=== PATIENT | female | born 1995 | race Caucasian/White ===

== ENCOUNTER 2017-05-13 06:00 | Observation (INO) ==
--- NOTE | 2017-05-13 09:10 | OB/GYN Progress Note ---
Date of Encounter: 05/13/17 Time of Encounter: 09:08 - Assessment and Plan (1) 39 weeks gestation of Current Visit: Yes Status: Acute Due to flulike symptoms and fever, will discharge home and postpone induction of labor until Monday at 8 AM. Plan of care discussed with Dr. Calzada (2) Upper respiratory infection Current Visit: No Status: Acute Qualifiers: URI type: unspecified URI Qualified Code(s): J06.9 - Acute upper respiratory infection, unspecified Subjective - Subjective Interval history: 1 P0 39+3 weeks gestation presents to triage for induction of labor. However, patient was seen in ED last night with flulike symptoms. Febrile with temperature greater than 101. Swab flu negative. Reports good movement, denies vaginal bleeding, denies leaking of fluid. Antepartum ROS: movement normal, no loss of fluid, no vaginal bleeding, no contractions Objective - Vital Signs Vital Signs: Intake and Output 05/12/17 05/13/17 05/13/17 23:59 07:59 15:59 Other: Weight 73.21 kg Patient Weight 05/13/17 23:59 Weight 73.21 kg - Exam FHR: auscultation normal FHR comments: 135 baseline Auscultation: bilateral: normal Abdomen: Present: normal appearance, soft, gravid
== END 2017-05-13 09:15 | disposition home or self-care (01) ==
LOC: INTOOBSV 08:15 → 1NENULAB 08:15
PROVIDERS: ADMIT Advanced Practice Midwife; ATTEND Advanced Practice Midwife

== ENCOUNTER 2017-05-15 08:00 | Inpatient (IN) ==
[2017-05-15] MEDS ORDERED: Ondansetron 4 MG/2 ML VIAL IVP PRN (08:33)
[2017-05-15] MEDS ORDERED: Famotidine 20 MG/2 ML VIAL IVP PRN (08:33)
[2017-05-15] MEDS ORDERED: *HR* Nalbuphine 20 MG/ML AMPUL IVP PRN (08:33)
[2017-05-15] MEDS ORDERED: Metoclopramide 10 MG/2 ML VIAL IVP PRN (08:33)
[2017-05-15] MEDS ORDERED: Naloxone 0.4 MG/ML INJ IVP PRN (08:33)
[2017-05-15 08:52] LABS: Basophils % 0.5 %; Eosinophils # 0.1 K/mcL (0.0-0.6); Eosinophils % 0.9 %; Hemoglobin 10.9 g/dL (11.5-15.4); Immature Granulocytes % 0.3 % (0-4); Immature Platelets 12.1 % (1.1-6.1); Lymphocytes # 1.7 K/mcL (0.6-4.6); Lymphocytes % 29.4 %; Mean Corpuscular HGB Conc 31.1 g/dL (31.6-35.5); Mean Corpuscular Hemoglobin 26.7 pg (28.0-33.3); Mean Corpuscular Volume 85.6 fL (83.0-100.0); Mean Platelet Volume 12.5 fL (9.4-12.4); Monocytes # 0.7 K/mcL (0.0-1.3); Monocytes % 12.5 %; Neutrophils # 3.3 K/mcL (1.6-8.9); Platelet Count 232 K/mcL (140-400); Red Blood Count 4.09 M/mcL (3.82-4.97); Red Cell Distribution Width 14.6 % (11.5-14.5); Segmented Neutrophils % 56.4 %
[2017-05-15] MEDS ORDERED: miSOPROStol 25 MCG TABLET PO PRN (08:52)
--- NOTE | 2017-05-15 09:15 | OB/GYN History & Physical ---
Date of Encounter: 05/15/17 Time of Encounter: 09:00 Assessment and Plan (1) 39 weeks gestation of Current visit: Yes Status: Acute Admit for IOL Cytotec for induction of labor Epidural when requested Anticipate (2) Non-stress test reactive on surveillance Current visit: Yes Status: Acute NST reactive Baseline 125 bpm/ moderate/ +accels/ -decels History of Present Illness Chief complaint: 39.5 weeks intrauterine here for IOL for IUGR HPI: Ms. Espino is a 21 year old female at 39 weeks + 5 days who presents to L&D for IOL. The patient reports active movements, denies vaginal bleeding, + contractions, - leakage of fluid complications - IUGR with normal dopplers Blood type: O- GBS: negative Rubella: Immune Hep B: Nonreactive Varicella IgG: Positive HIV Ab: Nonreactive Past Med Surg Social Fam HX - Past Medical History Medical history: non-contributory Psychiatric history: no psych history - Past Surgical History Surgical History: no surgical history - Social History Smoking Status: Never smoker Smokeless Tobacco Status: No Alcohol use: none Drug use: none - Family History Mother Adopted: [place]: Pat Méndez Age: 42 Family Member Ethnicity: Non- Living Status: Still Living Hx Family Cardiac Disorders: No Hx Family Respiratory Disorders: No Hx Family Cancer: No Hx Family GI Disorders: No Hx Family Genitourinary Disorders: No Hx Family Endocrine Disorder: No Hx Family Musculoskeletal Disorders: No Hx Family Autoimmune Disorders: No Hx Family Reproductive Disorders: No Hx Family Psychosocial Disorders: No Obstetrical History - Pregnancies : 1 Para: 0 Term: 0 : 0 Ab's: 0 Livin Medications and Allergies Gummies 05/15/17 [History] 3 Allergy/AdvReac Type Severity Reaction Status Date / Time Sulfa (Sulfonamide AdvReac Vomiting Verified 11/17/16 19:58 Antibiotics) Review of System OB - Constitutional Constitutional ROS IM: as per HPI - Cardiovascular Cardiovascular: no leg edema, no palpitations - Respiratory Respiratory: no cough, no dyspnea - Gastrointestinal Gastrointestinal: no vomiting Exam - Constitutional Constitutional: well developed, well nourished, no acute distress, average body habitus - HEENT HEENT: Normocephaly, Mucus Membranes Moist - Neck Neck exam: full ROM, trachea midline - Lungs Respiratory exam: CTAB - Cardiovascular Cardiovascular exam: RRR, +S1, +S2 - Abdomen Abdomen: Present: bowel sounds normal. Absent: bruit present - Extremities Extremities exam: radial pulses palpable and symmetrical Deep Tendon Reflex Grade: 2+ Normal - Vagina Vagina: Present: normal moisture - Uterus Uterus exam: Present: normal size (Fundus non-tender and soft) Results Result Diagrams: 05/15/17 08:36 Abnormal lab results Hgb 10.9 g/dL (11.5-15.4) L 05/15/17 08:36 Hct 35.0 % (35.3-44.9) L 05/15/17 08:36 MCH 26.7 pg (28.0-33.3) L 05/15/17 08:36 MCHC 31.1 g/dL (31.6-35.5) L 05/15/17 08:36 RDW 14.6 % (11.5-14.5) H 05/15/17 08:36 MPV 12.5 fL (9.4-12.4) H 05/15/17 08:36 Immature Plt Fraction 12.1 % (1.1-6.1) H 05/15/17 08:36 All other labs normal. - VTE Reasons for not Prescribing Prophylaxis: Treatment not Indicated - Low risk for VTE - Attending Attestation I examined this patient and my medical decision-making was reviewed with the Resident Physician. I agree with the documented findings, disposition and treatment plan as described. Darien Swann CNM
[2017-05-15 09:32] LABS: Amphetamine Screen,Urine Negative ng/mL (Cutoff=1000); Barbiturate Screen,Urine Negative ng/mL (Cutoff=200); Benzodiazepines Screen,Urine Negative ng/mL (Cutoff=200); Cannabinoid Screen,Urine Negative ng/mL (Cutoff = 50); Cocaine Screen,Urine Negative ng/mL (Cutoff= 300); Opiate Screen,Urine Negative ng/mL (Cutoff=300); Phencyclidine Screen,Urine Negative ng/mL (Cutoff=25)
--- NOTE | 2017-05-15 13:43 | OB Labor Progress Note ---
Date of Encounter: 05/15/17 Time of Encounter: 13:41 Labor Progress Note - Subjective Subjective: Patient resting comfortably in bed. - Vital Signs Vital Signs: VSS - Cervix Cervix: 1/50/-1 Anterior - Heart Tones Heart Tones: 130-140 category I - [place]: irregular contractions - Interventions Interventions: Intracervical booker placed without difficulty. Inflated with 30 cc sterile water. Patient and fetus tolerated well. Patient calls out after, I had left the room and states that she thinks her water had broken. Upon inspection, light stained meconium fluid present. - Plan Plan: Continue routine labor management GBS negative Patient may have nubain/epidural upon request Consider oral cytotec vs pitocin Anticipate vaginal delivery POC per consult with Dr Dawson.
--- NOTE | 2017-05-15 14:58 | Anesthesia Evaluation PreOp ---
Date of Encounter: 05/15/17 Time of Encounter: 14:56 - Past History Planned Operation: jeaneth Cardiac History: Denies any Significant Hx Pulmonary History: Denies Any Significant HX LOCKSTITCH SLEEVE SETTER History: Denies Any Significant HX Other Medical History: Denies Any Significant HX Anesthesia History: No Prior Anesthetic Complications, Past Anesthesia (tonsils) : Yes (39weeks, ) Alcohol Use: none Drug use: none Medications and Allergies Gummies 05/15/17 [History] 3 Allergy/AdvReac Type Severity Reaction Status Date / Time Sulfa (Sulfonamide AdvReac Vomiting Verified 11/17/16 19:58 Antibiotics) - Meds/Allergy Pre-op Review Medications Reviewed: Yes Allergies Reviewed: Yes Beta Blockers on Current Med List: No Anesthesia Results - Labs 05/15/17 08:36 Anesthesia Exam O2 Sat Height 1.6 m Weight 72.9 kg bpo 11/74 hr 87 Height: 63 Weight: 72 - HEENT Pupil (Motor): Pupils equal Teeth: Normal Oral Opening: Greater than 3 - LOCKSTITCH SLEEVE SETTER LOC: Oriented LOCKSTITCH SLEEVE SETTER Motor: Normal RUE, Normal LUE, Normal RLE, Normal LLE, Normal Face LOCKSTITCH SLEEVE SETTER Sensory: Normal: RUE, LUE, RLE, LLE, Face - Cardiac Rhythm: Regular Murmur: None JVD: No Anesthesia Assess/Plan ASA Score: 1 Modified [place] Scale for Level of Consciousness: Cooperative, oriented, and tranquil Anesthetic Plan: MAC Monitoring Plan: Standard Monitors
[2017-05-15] MEDS: Ringers Solution, Lactated 1,000 ML IVC SCH ×2 (15:39→22:06)
[2017-05-15] MEDS ORDERED: Oxytocin 20 units/ LR 1000 mL 20 UNIT/1,000 ML BAG IVC SCH (17:15)
[2017-05-15] MEDS ORDERED: *HR* FentaNYL (PF) 100 MCG/2 ML VIAL EP ONE (19:11)
[2017-05-15] MEDS ORDERED: EPHEDrine 50 MG/ML VIAL IVP PRN (19:11)
[2017-05-15] MEDS ORDERED: *HR* FentaNYL (PF) 100 MCG/2 ML VIAL ONE (19:13)
[2017-05-15] MEDS ORDERED: Epidural Premix (fent/bupiv) 110 ML EP ONE (19:14)
[2017-05-15] MEDS ORDERED: Epidural Premix (fent/bupiv) 110 ML EP SCH (19:15)
[2017-05-15] MEDS ORDERED: *HR* ROPIVACAINE 1% PF 100 MG/10 ML VIAL ONE (19:15)
--- NOTE | 2017-05-15 19:39 | Anesthesia Procedures ---
Date of Encounter: 05/15/17 Time of Encounter: 19:37 Procedures: Anesthesia - Epidural/Spinal Patient ID/Chart reviewed: Yes Patient examined: Yes OB Eval: Gestational age: 39 OB Eval: : 1 OB Eval: Hx Para: 0 OB Eval: Dilated at (cm): 5 OB Eval: Contractions: Non-stressed pattern Consent Obtained: Yes Supplemental Oxygen: None/Room Air Site Prep: Aseptic Technique Patient position: upright Local Anesthetic: Lidocaine 1% Amount of Local Anesthetic used: 3 Touhy Needle Gauge: 18 Touhy Needle Depth (cm): 5 Catheter Depth at Skin (cm): 12 Test Dose (1.5% Lido + Epi): Volume given (mls): 3 Test Dose Result: Negative Loading Dose: Fentanyl (mcg): 100 Loading Dose: Other: ropivicaine 0.1% 6cc Loading Dose Administered: Thru Touhy Needle Infusion Med: 0.125% Bupivacaine w/ 2 mcg/ml Fentanyl Infusion Rate (mls/hr): [address]: Tegaderm Interspace Used: L3-L4 Loss of Resistance (LESLIE): Yes Blood: No CSF: No Paresthesia: No
[2017-05-15] MEDS ORDERED: 0.9 % Sodium Chloride 1,000 ML ONE (20:09)
--- NOTE | 2017-05-15 20:22 | OB Labor Progress Note ---
Date of Encounter: 05/15/17 Time of Encounter: 20:20 Labor Progress Note - Subjective Subjective: Patient resting in bed comfortably after epidural has been placed. - Vital Signs Vital Signs: VSS - Blood pressure decreased while in room, [employer] present and bolus of epinephrine given. - Cervix Cervix: 5/80/0 anterior mild caput and position of fetus palpates OP - Heart Tones Heart Tones: Marked variability - baseline 140 prior to onset of decel with contractions - [place]: COntractions every 1.5-2 minutes - Interventions Interventions: IUPC placed. FSE placed after decel. Intrauterine resuscitation completed; pitocin stopped. Amnioinfusion started. Dr Dawson called to bedside. - Plan Plan: Continue routine labor management Allow for recovery Continue amnioinfusion Consider restarting pitocin Vaginal delivery vs POC per consult with Dr Dawson.
[2017-05-15] MEDS ORDERED: Acetaminophen 325 MG TABLET PO ONE (21:26)
[2017-05-15] MEDS ORDERED: Ampicillin 2 GM in 0.9 % Sodium Chloride Mini Bag 100 ML IVPB STA (21:31)
[2017-05-15] MEDS ORDERED: GENTAMICIN IVPB ONE (21:32)
[2017-05-15] MEDS ORDERED: SODIUM CHLORIDE 0.9% IVPB ONE (21:32)
--- NOTE | 2017-05-15 23:57 | OB Labor Progress Note ---
Date of Encounter: 05/15/17 Time of Encounter: 23:14 Labor Progress Note - Subjective Subjective: Patient sitting up comfortably in bed doing her makeup. Fetus does not tolerate position changes - Vital Signs Vital Signs: Respirations normal, BP normal, HR 95-110, Temp 100.4-101.2 - Cervix Cervix: 5-6/80/0 Caput present cervix stretched around caput - Heart Tones Heart Tones: 155-165 moderate variability with periods of marked variability. Occasional variable and late decel present. - [place]: Contractions every 3 minutes - Plan Plan: Continue routine labor management GBS negative Intrapartum fever noted - Amp, Gent, and tylenol given Amnioinfusion currently infusing Restart pitocin at 1mu/min Vaginal delivery vs delivery POC per consult with Dr Dawson; Called for Section.
[2017-05-16] MEDS ORDERED: MetroNIDAZOLE 500 MG/100 ML 500 MG/100 ML BAG IVPB ONE (00:12)
--- NOTE | 2017-05-16 00:15 | OB Labor Progress Note ---
Date of Encounter: 05/16/17 Time of Encounter: 00:13 Labor Progress Note - Subjective Subjective: Pt comfortable with epidural - Vital Signs Vital Signs: Tm 100.3, afeb, VSS - Cervix Cervix: Per CNM 5-6/80/0, vtx - Heart Tones Heart Tones: 140s, CAT2, variable decels - [place]: cont q 2-3' x 50mmHg - Interventions Interventions: Consent to proceed with primary for intolerance to labor and failure to progress with arrest at 5-6 cm, thick meconium-stained amniotic fluid obtained - Plan Plan: Proceed with primary section. Anesthesia, [place], respiratory notified
[2017-05-16] MEDS ORDERED: *HR* Phenylephrine 10 MG/ML VIAL ONE (00:24)
[2017-05-16] MEDS ORDERED: Chloroprocaine/PF 20 ML VIAL INFILT ONE ×2 (00:30→00:33)
[2017-05-16] MEDS ORDERED: *HR* FentaNYL (PF) 100 MCG/2 ML VIAL ONE (00:41)
[2017-05-16] MEDS ORDERED: Morphine Sulfate/PF 5mg/10mL Vial ONE (01:04)
[2017-05-16] MEDS ORDERED: *HR* ROPIVACAINE 1% PF 100 MG/10 ML VIAL ONE (01:16)
[2017-05-16] MEDS ORDERED: *HR* Ropivacaine/PF 0.5% 20 ML VIAL ONE (01:16)
[2017-05-16] MEDS ORDERED: *HR* Ropivacaine/PF 0.2% 20 ML VIAL ONE (01:20)
--- NOTE | 2017-05-16 01:28 | OB/GYN Procedure Note ---
Section - Date of procedure: 05/16/17 Preop diagnosis: arrest of descent, arrest of dilation, category 2 FHT tracing, other (Thick meconium-stained amniotic fluid, intolerance to labor) Post-op diagnosis: same (Nuchal X1) Procedure: section, primary low transverse Surgeon: Nathaly Dawson Estimated blood loss (cc): 600 Was there an assistant director of residence life present: No Anesthesiologist: Gerardo Walters Trim Machine Adjuster: Ford Contreras Anesthesia Type: Epidural section complications: none Disposition: L&D Recovery Room Specimens: Placenta, Cord segment, Cord blood - Infant (s) A Infant Delivery Date: 05/16/17 Infant Delivery Time: 00:43 Presentation: vertex Position: LOT Route of delivery: other ( section) Gender: Female Viability: Viable Pounds: 7 Ounces: 5 at 1 minute: 8 at 5 minutes: 8 Specimens collected: cord blood Placenta: spontaneous, uterine exploration Cord: nuchal cord, 3 umbilical vessels, nuchal reduced - Narrative Narrative: The patient was brought to the operating room, sign in completed. Epidural anesthesia was dosed to be adequate for surgery. The patient was then prepped and draped in the usual sterile fashion. A timeout was completed. A Pfannenstiel skin incision was then made and sharply dissected down to the fascia. The fascia was then incised in the midline and extended bluntly and sharply bilaterally. 2 straight Lizzie clamps were placed on the inferior fascial edge and the fascia was bluntly and sharply dissected away from rectus muscles, this was repeated superiorly.The rectus muscles were bluntly and sharply bissected. Peritoneum was bluntly entered and extended superiorly and inferiorly. A bladder blade was placed to protect the bladder. The Vesicouterine peritoneum was incised with Metzenbaum scissors and extended laterally then the bladder flap was reflected inferiorly and the bladder blade was replaced to protect the bladder. A low transverse incision was then made in the lower uterine segment down to the amnion. This was then bluntly extended laterally. The amnion was then bluntly entered, diluted meconium- stained amniotic fluid was seen, and the was delivered in a LOT presentation. There was a nuchal x1 which was reduced. The was vigorous and bulb suctioned after delivery of the head and on the operating field. The infant was handed to the nursery care team. Cord blood was obtained and a cord segment was obtained. IV Pitocin was started. The placenta was delivered spontaneous and intact. The uterine Cavity was digitally inspected and noted to be clear and then was wiped clean with a moist lap sponge. Tubes and ovaries were inspected and found to be grossly normal. Ring clamps were placed on the edge of the uterine incision and the uterine incision was closed using 0 Vicryl suture in a running locking fashion. Gloves were changed. A second imbricating layer completed the uterine closure. Good hemostasis was achieved. The pelvic cavity was copiously irrigated with sterile water and good hemostasis was again noted. Peritoneal edges and rectus muscles were inspected and good hemostasis was achieved. The fascia was then closed using an 0 PDS loop in a running nonlocking fashion. Subcutaneous tissue was irrigated with sterile water good hemostasis was achieved. The skin was then closed with 4-0 Vicryl in a subcuticular fashion. Benzoin and Steri- Strips were used to reinforce the skin incision. Yanez was noted to be draining clear yellow urine at the end of the procedure. All sponge and instrument counts were correct at the end of the procedure. The patient was taken to the recovery room in stable condition.
[2017-05-16] MEDS ORDERED: Ondansetron 4 MG/2 ML VIAL IVP PRN ×2 (01:47→08:07)
[2017-05-16] MEDS ORDERED: Naloxone 0.4 MG/ML INJ IVP PRN (01:47)
[2017-05-16] MEDS ORDERED: *HR* OxyCODONE/APAP 5/325 TABLET PO PRN (01:47)
--- NOTE | 2017-05-16 01:47 | Anesthesia Procedures ---
Date of Encounter: 05/16/17 Time of Encounter: 01:45 Procedures: Anesthesia - Nerve Block Procedure Date: 05/16/17 Time: 01:45 Allergies/Adv Reactions: Sulfa (Sulfonamide Antibiotics) Adverse Reaction (Verified 11/17/16 19:58) Vomiting Checklist: Correct Patient Identifier, Correct procedure, History checked Blood Thinner: No Monitor Applied: EKG, BP, Pulse Oximetry Supplemental Oxygen via Nasal Cannula (L/min): 2 Indication: Post Op Analgesia Block Type: Other (TAP) Catheter placed: No Sterile Technique: Yes Ultrasound used: Yes Anatomy identified: Yes Visual spread of Local: Yes Neuro Stimulation: No Blood on Needle Aspiration: No Smooth Injection of Local: Yes Pain with Injection of Local: No Prep: Chlorhexadine Needle: 21 x 100 mm Stimuplex Local: Ropivacaine (0.25%) Volume (cc): 60 Number of Attempts: 1 Complications: None/effective block Comments: Ultrasound guided bilateral TAP block without difficulty.
[2017-05-16] MEDS ORDERED: Acetaminophen IV 1,000 MG/100 ML INFUS..BTL IVPB ONE (02:20)
[2017-05-16] MEDS ORDERED: Rho Immune Globulin 1,500 UNIT SYRINGE IM ONE (08:07)
[2017-05-16] MEDS ORDERED: Simethicone 80 MG TAB.CHEW PO PRN (08:07)
[2017-05-16] MEDS ORDERED: Metoclopramide 10 MG/2 ML VIAL IVP PRN (08:07)
[2017-05-16] MEDS ORDERED: Oxytocin 20 units/ LR 1000 mL 20 UNIT/1,000 ML BAG IVC SCH (08:07)
[2017-05-16] MEDS ORDERED: Sennosides 8.6 MG TABLET PO PRN (08:07)
[2017-05-16] MEDS: CeFAZolin Premix DUPLEX 2,000 MG/50 ML BAG IVPB SCH ×2 (09:24→19:24)
[2017-05-16] MEDS: Ibuprofen 600 MG TABLET PO SCH ×2 (09:32→21:28)
[2017-05-16] MEDS: *HR* OxyCODONE/APAP 5/325 TABLET PO PRN ×3 (10:12→18:26)
[2017-05-16] MEDS: MetroNIDAZOLE 500 MG/100 ML 500 MG/100 ML BAG IVPB SCH (18:20)
[2017-05-17] MEDS: MetroNIDAZOLE 500 MG/100 ML 500 MG/100 ML BAG IVPB SCH (02:35)
[2017-05-17] MEDS: CeFAZolin Premix DUPLEX 2,000 MG/50 ML BAG IVPB SCH (03:40)
[2017-05-17 04:53] LABS: Basophils % 0.2 %; Eosinophils % 0.2 %; Hematocrit 28.9 % (35.3-44.9); Hemoglobin 9.4 g/dL (11.5-15.4); Immature Granulocytes % 0.9 % (0-4); Lymphocytes # 2.6 K/mcL (0.6-4.6); Lymphocytes % 15.6 %; Mean Corpuscular HGB Conc 32.5 g/dL (31.6-35.5); Mean Corpuscular Hemoglobin 27.2 pg (28.0-33.3); Mean Corpuscular Volume 83.5 fL (83.0-100.0); Mean Platelet Volume 11.7 fL (9.4-12.4); Monocytes # 0.8 K/mcL (0.0-1.3); Monocytes % 4.8 %; Neutrophils # 13.2 K/mcL (1.6-8.9); Nucleated Red Blood Cells 0.2 /100 WBC (0); Platelet Count 213 K/mcL (140-400); Red Blood Count 3.46 M/mcL (3.82-4.97); Red Cell Distribution Width 14.4 % (11.5-14.5); Segmented Neutrophils % 78.3 %
[2017-05-17] MEDS: Ibuprofen 600 MG TABLET PO SCH ×2 (07:54→15:06)
[2017-05-17] MEDS: Prenatal Vit/FA 1 EACH TABLET PO SCH (07:54)
[2017-05-17] MEDS: *HR* OxyCODONE/APAP 5/325 TABLET PO PRN ×3 (09:12→21:12)
--- NOTE | 2017-05-17 09:15 | OB/GYN Progress Note ---
Date of Encounter: 05/17/17 Time of Encounter: 09:13 - Assessment and Plan (1) Status post delivery Current Visit: Yes Status: Acute Continue routine /post op care Meeting day 1 milestones Plan for discharge tomorrow. (2) Breast feeding status of mother Current Visit: Yes Status: Acute support prn Patient reports having a breast pump at home. (3) anemia Current Visit: Yes Status: Acute Continue Iron supplementation Monitor VS as ordered Subjective - Subjective Principal diagnosis: S/P section Interval history: Patient resting in bed. States pain is moderately controlled with Ibuprofen and Percocet. Very sore this morning. States she is voiding without difficulty and eating regular food with no nausea or vomiting. Patient would like to stay another night and plan for discharge tomorrow. She is and states she has a breast pump at home. Patient reports: appetite normal, voiding normally, pain well controlled, ambulating normally : doing well Objective - Vital Signs Latest vital signs: Vital Signs Temp Pulse Resp BP Pulse Ox 05/17/17 07:50 98.1 F 70 16 108/74 95 05/17/17 00:00 98.1 F 88 16 122/82 96 05/16/17 19:35 98.2 F 78 16 118/75 96 05/16/17 16:27 97.9 F 68 18 119/78 97 05/16/17 12:00 97.9 F 70 16 117/73 94 Intake and Output 05/16/17 05/17/17 05/17/17 23:59 07:59 15:59 Intake Total 850 / 850 590 / 590 Output Total 900 / 900 Balance 850 / 850 -310 / -310 Intake: IV Fluids 150 / 150 150 / 150 Ancef Premix DUPLEX 2,000 mg In 50 / 50 50 / 50 50 ml @ 100 mls/hr IVPB Q8H ARA Rx#:[id number] Flagyl Premix 500 MG/100 ML 500 100 / 100 100 / 100 mg In 100 ml @ 100 mls/hr IVPB Q8HR ARA Rx#:[id number] Oral 700 / 700 440 / 440 Output: Urine 900 / 900 Other: # Voids 2 Weight 71.668 kg Patient Weight 05/17/17 23:59 Weight 71.668 kg - Exam Lungs: bilateral: normal Chest: Normal S1, Normal S2 Extremities: Present: normal Abdomen: Present: normal appearance, soft Incision: Present: dressed Uterus: Present: normal, firm Fundal Height: 2 (u/2) - Labs Labs: Laboratory Results - last 24 hr 05/17/17 04:26 WBC 16.9 H D RBC 3.46 L Hgb 9.4 L D Hct 28.9 L MCV 83.5 MCH 27.2 L MCHC 32.5 RDW 14.4 Plt Count 213 MPV 11.7 Immature Gran % 0.9 Seg Neutrophils % 78.3 Lymphocytes % 15.6 Monocytes % 4.8 Eosinophils % 0.2 Basophils % 0.2 Neutrophils # 13.2 H Lymphocytes # 2.6 Monocytes # 0.8 Eosinophils # 0.0 Basophils # 0.0 Nucleated RBCs/100 WBC 0.2 H
--- NOTE | 2017-05-17 09:36 | OB/GYN Progress Note ---
Date of Encounter: 05/17/17 Time of Encounter: 09:32 - Assessment and Plan (1) Breast feeding status of mother Current Visit: Yes Status: Acute Continue work with (2) anemia Current Visit: Yes Status: Acute Continue iron supplementation (3) Status post delivery Current Visit: Yes Status: Acute POD #2 Continue routine care Continue po pain management Continue support Anticipate discharge home tomorrow Subjective - Subjective Interval history: Pt reports she is feeling mostly well but still having significant pain. Requesting to stay one more night to achieve better pain control. Tolerating regular diet Voiding independently Passing flatus and BM Lochia light Reports painful nipples with Plan for discharge tomorrow Objective - Vital Signs Latest vital signs: Vital Signs Temp Pulse Resp BP Pulse Ox 05/17/17 07:50 98.1 F 70 16 108/74 95 05/17/17 00:00 98.1 F 88 16 122/82 96 05/16/17 19:35 98.2 F 78 16 118/75 96 05/16/17 16:27 97.9 F 68 18 119/78 97 05/16/17 12:00 97.9 F 70 16 117/73 94 Intake and Output 05/16/17 05/17/17 05/17/17 23:59 07:59 15:59 Intake Total 850 / 850 590 / 590 Output Total 900 / 900 Balance 850 / 850 -310 / -310 Intake: IV Fluids 150 / 150 150 / 150 Ancef Premix DUPLEX 2,000 mg In 50 / 50 50 / 50 50 ml @ 100 mls/hr IVPB Q8H ARA Rx#:[id number] Flagyl Premix 500 MG/100 ML 500 100 / 100 100 / 100 mg In 100 ml @ 100 mls/hr IVPB Q8HR ARA Rx#:[id number] Oral 700 / 700 440 / 440 Output: Urine 900 / 900 Other: # Voids 2 Weight 71.668 kg Patient Weight 05/17/17 23:59 Weight 71.668 kg - Exam Lungs: bilateral: normal Chest: Normal S1, Normal S2 Extremities: Present: normal Abdomen: Present: normal appearance, soft Incision: Present: normal, dry, intact Uterus: Present: normal, firm Fundal Height: 2 (below) - Labs Labs: Laboratory Results - last 24 hr 05/17/17 04:26 WBC 16.9 H D RBC 3.46 L Hgb 9.4 L D Hct 28.9 L MCV 83.5 MCH 27.2 L MCHC 32.5 RDW 14.4 Plt Count 213 MPV 11.7 Immature Gran % 0.9 Seg Neutrophils % 78.3 Lymphocytes % 15.6 Monocytes % 4.8 Eosinophils % 0.2 Basophils % 0.2 Neutrophils # 13.2 H Lymphocytes # 2.6 Monocytes # 0.8 Eosinophils # 0.0 Basophils # 0.0 Nucleated RBCs/100 WBC 0.2 H
[2017-05-17] MEDS: cephALEXin 500 MG CAPSULE PO SCH ×2 (11:25→21:12)
[2017-05-17] MEDS: Azithromycin 250 MG TABLET PO SCH (11:25)
[2017-05-18] MEDS: *HR* OxyCODONE/APAP 5/325 TABLET PO PRN ×2 (04:27→09:39)
[2017-05-18] MEDS: Ibuprofen 600 MG TABLET PO SCH (04:27)
[2017-05-18 08:14] VITALS: BP 111/67
[2017-05-18] MEDS: cephALEXin 500 MG CAPSULE PO SCH (09:39)
[2017-05-18] MEDS: Prenatal Vit/FA 1 EACH TABLET PO SCH (09:39)
[2017-05-18] MEDS: Azithromycin 250 MG TABLET PO SCH (09:40)
--- NOTE | 2017-05-18 10:13 | Discharge Summary ---
Date of Encounter: 05/18/17 Time of Encounter: 10:11 - Discharge Diagnosis (1) Breast feeding status of mother Priority: Secondary Status: Acute (2) anemia Priority: Secondary Status: Acute Comments: Will discharge on iron (3) Status post delivery Priority: Primary Status: Acute Comments: Pt states feels okay, pain well managed on po pain medication, tolerates po diet , lochia minimal Desires discharge. - Discharge Medications Prescriptions: OxyCODONE/APAP 5/325 [Percocet 5/325 MG] 1 each PO Q4HR PRN 7 Days #24 tablet PRN Reason: Moderate pain 4-6 Ibuprofen [Motrin] 600 mg PO Q6HR #60 tablet Azithromycin [Zithromax] 500 mg PO DAILY #5 tablet cephALEXin [Keflex] 500 mg PO BID #10 capsule Docusate [Colace] 100 mg PO BID #60 capsule Ferrous Sulfate 325 mg PO DAILY #60 tablet Home Medications: Gummies 05/15/17 [History] Azithromycin [Zithromax] 500 mg PO DAILY #5 tablet 05/18/17 [Rx] Docusate [Colace] 100 mg PO BID #60 capsule 05/18/17 [Rx] Ferrous Sulfate 325 mg PO DAILY #60 tablet 05/18/17 [Rx] Ibuprofen [Motrin] 600 mg PO Q6HR #60 tablet 05/18/17 [Rx] OxyCODONE/APAP 5/325 [Percocet 5/325 MG] 1 each PO Q4HR PRN 7 Days #24 tablet [Rx] Vit/FA 1 each PO DAILY #0 tablet 05/18/17 [Rx] Simethicone [Gas-X] 80 mg PO TID PRN tab.chew 05/18/17 [Rx] cephALEXin [Keflex] 500 mg PO BID #10 capsule 05/18/17 [Rx] Allergies/Adverse Reactions: 3 Allergy/AdvReac Type Severity Reaction Status Date / Time Sulfa (Sulfonamide AdvReac Vomiting Verified 11/17/16 19:58 Antibiotics) Data Procedures and tests throughout hospitalization: Laboratory Tests 05/15/17 05/15/17 05/16/17 08:36 09:00 02:03 WBC 5.9 RBC 4.09 Hgb 10.9 L Hct 35.0 L MCV 85.6 MCH 26.7 L MCHC 31.1 L RDW 14.6 H Plt Count 232 MPV 12.5 H Immature Gran % 0.3 Seg Neutrophils % 56.4 Lymphocytes % 29.4 Monocytes % 12.5 Eosinophils % 0.9 Basophils % 0.5 Neutrophils # 3.3 Lymphocytes # 1.7 Monocytes # 0.7 Eosinophils # 0.1 Basophils # 0.0 Nucleated RBCs/100 WBC Immature Plt Fraction 12.1 H Urine Opiates Screen Negative Ur Barbiturates Screen Negative Ur Phencyclidine Scrn Negative Ur Amphetamines Screen Negative U Benzodiazepines Scrn Negative Urine Cocaine Screen Negative U Marijuana (THC) Screen Negative Baby's Blood Type O RH NEGATIVE Mother's Blood Type O RH NEGATIVE Rhogam Indicated NO 05/17/17 04:26 WBC 16.9 H D RBC 3.46 L Hgb 9.4 L D Hct 28.9 L MCV 83.5 MCH 27.2 L MCHC 32.5 RDW 14.4 Plt Count 213 MPV 11.7 Immature Gran % 0.9 Seg Neutrophils % 78.3 Lymphocytes % 15.6 Monocytes % 4.8 Eosinophils % 0.2 Basophils % 0.2 Neutrophils # 13.2 H Lymphocytes # 2.6 Monocytes # 0.8 Eosinophils # 0.0 Basophils # 0.0 Nucleated RBCs/100 WBC 0.2 H Immature Plt Fraction Urine Opiates Screen Ur Barbiturates Screen Ur Phencyclidine Scrn Ur Amphetamines Screen U Benzodiazepines Scrn Urine Cocaine Screen U Marijuana (THC) Screen Baby's Blood Type Mother's Blood Type Rhogam Indicated Date of admission: 05/15/17 08:00 Primary care physician: PCP NONE Discharging clinician: Esmer Mendoza Anticipated date of discharge: 05/18/17 - Patient Status Disposition: Home, Self-Care Condition: Good Functional capacity at discharge: independent ambulation Overall status at discharge: patient is back to baseline - Discharge Instructions Instructions: Anemia (GEN) Follow Up With: NONE,PCP [Primary Care Provider] - - Diet and Activity Activity: resume usual activities as tolerated Diet: regular diet Hospital Course Reason for admission: induction of labor Delivery: section Episiotomy: none Laceration: none Other procedures: none complications: none Discharge diagnosis: IUP at term delivered [place] baby: female Hospital course: Section - Date of procedure: 05/16/17 Preop diagnosis: arrest of descent, arrest of dilation, category 2 FHT tracing, other (Thick meconium-stained amniotic fluid, intolerance to labor) Post-op diagnosis: same (Nuchal X1) Procedure: section, primary low transverse Surgeon: Nathaly Dawson Estimated blood loss (cc): 600 Was there an desk assistant present: No Anesthesiologist: Gerardo Walters [employer] Service Team Member: Ford Contreras Anesthesia Type: Epidural section complications: none Disposition: L&D Recovery Room Specimens: Placenta, Cord segment, Cord blood - (s) Infant A Delivery Date: 05/16/17 Delivery Time: 00:43 Presentation: vertex Position: LOT Route of delivery: other ( section) Gender: Female Viability: Viable Pounds: 7 Ounces: 5 at 1 minute: 8 at 5 minutes: 8 Specimens collected: cord blood Placenta: spontaneous, uterine exploration Cord: nuchal cord, 3 umbilical vessels, nuchal reduced Stable in PP and appropriate for discharge. OAARS reviewed Time Attestation: Total time spent providing and/or coordinating discharge services: Time Spent: Less than 30 minutes - VTE Reasons for not Prescribing Prophylaxis: Treatment not Indicated - Low risk for VTE Documentation of Mechanical Device: Intermittent pneumatic compression device Exam - Constitutional Vitals: Temp Pulse Resp BP Pulse Ox 97.9 F 68 16 111/67 96 05/18/17 07:20 05/18/17 07:20 05/18/17 09:56 05/18/17 07:20 05/18/17 07:20 General appearance IM: A&O X 3 - Respiratory Respiratory exam: Present: CTAB - Cardiovascular Cardiovascular exam IM: Present: RRR - GI/Abdominal GI/Abdominal exam IM: normal bowel sounds, soft Incision: dressed - Uterine Tone: Firm Uterus Position: At Umbilicus - Extremities Exam Extremities exam IM: Present: normal capillary refill, normal inspection - Neurological Exam Neurological exam: normal gait, oriented X3 - Psychiatric Additional comments: Reports good mood.
== END 2017-05-18 11:30 | disposition home or self-care (01) | DRG 540 ==
LOC: 1NENULAB 08:00 → 1NENUOBS 05-16 03:33
PROVIDERS: ADMIT Advanced Practice Midwife; ATTEND Advanced Practice Midwife